=== PATIENT | male | born 1995 | race Hispanic/Latino ===

== ENCOUNTER 2018-07-14 14:53 | Emergency (ER) | payer SELFPAY ==
[2018-07-14] MEDS ORDERED: ONDANSETRON 4 MG/2 ML VIAL ONE (15:10)
[2018-07-14] MEDS ORDERED: FENTANYL CITR 100 MCG/2 ML ONE (15:10)
[2018-07-14 15:33] LABS: Absolute Monocytes 1.1 K/uL (0.1-1.3); Basophils % 0.3 % (0-1.3); Eosinophils % 0.5 % (0-4.4); Lymphocytes % 24.3 % (15.3-44.8); MCH 30.5 pg (27.0-35.0); MCV 88.9 fL (80-100); MPV 9.2 fL (7.6-11.3); Monocytes % 9.1 % (3.3-12.3); RBC Red Blood Cell Count 5.52 M/uL (4.33-5.43)
[2018-07-14 15:39] LABS: BUN Blood Urea Nitrogen 10 mg/dL (7-18); Bicarbonate 31 mmol/L (21-32); Glucose Level 91 mg/dL (74-106); Potassium 3.1 mmol/L (3.5-5.1); Sodium Level 135 mmol/L (136-145)
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
[2018-07-14] MEDS ORDERED: LIDOCAINE 1% MPF 30 ML VIAL ONE (16:26)
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
== END 2018-07-14 19:10 | disposition home or self-care (01) ==
LOC: ER 14:53
PROC: 2W3DX1Z Immobilization of Left Lower Arm using Splint (ICD-10-PCS; principal; 2018-07-14)
PROC: 0JQ10ZZ Repair Face Subcutaneous Tissue and Fascia, Open Approach (ICD-10-PCS; 2018-07-14)
PROC: 0CQ1XZZ Repair Lower Lip, External Approach (ICD-10-PCS; 2018-07-14)
DX: S62.311A Displaced fracture of base of second metacarpal bone, left hand, initial encounter for closed fracture (principal); S62.313A Displaced fracture of base of third metacarpal bone, left hand, initial encounter for closed fracture; S01.511A Laceration without foreign body of lip, initial encounter; S01.512A Laceration without foreign body of oral cavity, initial encounter; S01.01XA Laceration without foreign body of scalp, initial encounter; V86.55XA Driver of 3- or 4- wheeled all-terrain vehicle (ATV) injured in nontraffic accident, initial encounter; Y93.89 Activity, other specified; Y92.89 Other specified places as the place of occurrence of the external cause
CPT/HCPCS: 36415; 70450; 71260; 72125; 74177; 80048; 85025; 86850; 86900; 86901; 96374; 96375; 99285; J2405; J3010; Q9967